=== PATIENT | male | born 1980 | race Two or more races ===

== ENCOUNTER 2024-09-22 23:56 | Emergency (ER) | payer OTHER ==
[~2024-09-22] VITALS: Ht 167.6 cm; Wt 59.0 kg
[2024-09-23 00:07] VITALS: BP 126/85; O2SAT 97
[2024-09-23] MEDS ORDERED: ACETAMINOPHEN 500 MG GEL..CAP PO ONE (00:12)
[2024-09-23] MEDS ORDERED: FAMOTIDINE/PF 20 MG/2 ML VIAL ONE (01:17)
[2024-09-23] MEDS ORDERED: LACTOBACILLUS ACIDOPHILUS 1 CAP CAP PO ONE ×2 (01:17→07:40)
[2024-09-23] MEDS ORDERED: POTASSIUM CHLORIDE/NACL 0.9% 20 MEQ/1,000 ML PIGGYBAG IV ONE (01:25)
[2024-09-23] MEDS ORDERED: HYOSCYAMINE SULFATE 0.125 MG TAB.SUBL ONE ×2 (01:25→07:39)
[2024-09-23 02:33] LABS: HEMATOCRIT 41.1 % (39.0-48.0); HEMOGLOBIN 14.6 g/dL (13-16.00); MEAN CELL VOLUME 95.1 fL (80.0-100.00); MEAN CORPUSCULAR HEMOGLOBIN 33.6 pg (27.00-32.0); MEAN CORPUSCULAR HGB CONC 35.4 g/dl (32.0-36.0); PLATELET COUNT 134 K/uL (150-450); RED BLOOD COUNT 4.33 M/uL (4.00-6.00)
[2024-09-23 03:33] LABS: CALCIUM 8.7 mg/dL (8.5-10.1); CREATININE SERUM 0.77 mg/dL (0.70-1.30); GFR 111.33; POTASSIUM 3.42 mEq/L (3.5-5.1)
[2024-09-23 03:44] LABS: PH,URINE 6.5 (5.0-8.0); URINE APPEARANCE Clear; URINE BILIRRUBIN Negative (NEGATIVE); URINE BLOOD Large; URINE COLOR Yellow; URINE GLUCOSE Negative (NEGATIVE); URINE KETONE Negative (NEGATIVE); URINE LEUKOCYTE Negative; URINE NITRATE Negative; URINE PROTEIN Negative (NEGATIVE); URINE UROBILINOGEN 0.2 E.U./dl
[2024-09-23 03:46] LABS: URINE BACTERIA 13.4 uL (0.0-1933); URINE RBC 584.7 uL (0.0-20.8)
[2024-09-23 03:56] LABS: URINE EPITHELIAL CELLS 1.2 uL (0.0-38.8); URINE WBC 1.7 uL (0.0-23.2)
[2024-09-23] MEDS ORDERED: CIPROFLOXACIN IN 5 % DEXTROSE 400 MG/200 ML PIGGYBAG IV ONE (05:03)
== END 2024-09-23 07:50 ==
LOC: ER 23:58
PROVIDERS: General Practice
DX: A04.8 Other specified bacterial intestinal infections (principal); Z20.822 Contact with and (suspected) exposure to COVID-19